=== PATIENT | female | born 1975 | race African-American/Black ===

== ENCOUNTER 2019-02-08 19:39 | Emergency (ER) | payer BC ==
[2019-02-08 19:56] VITALS: BP 137/82
[2019-02-08] MEDS ORDERED: ASPIRIN 81 MG TABLET, CHEWABLE PO ONE (20:14)
--- NOTE | 2019-02-08 20:20 | ER Document Report ---
Addendum entered and electronically signed by JORGE ALBERTO WHITMORE PA 02/08/19 21:51: Course - Re-evaluation Re-evalutation: 02/08/19 21:51 Venous Doppler production control technologist reports to me that her initial report is unofficially negative for DVT. - Vital Signs Vital signs: Temp Pulse Resp BP Pulse Ox 98.4 F 94 18 137/82 H 97 02/08/19 19:53 02/08/19 19:53 02/08/19 19:53 02/08/19 19:53 02/08/19 19:53 - Laboratory Result Diagrams: 02/08/19 20:15 02/08/19 20:15 Laboratory results interpreted by me: 02/08/19 20:15 RDW 15.0 H Original Note: ED Medical Screen (RME) - General Chief Complaint: Chest Pain Stated Complaint: CHEST DISCOMFORT Time Seen by Provider: 02/08/19 20:17 Notes: Patient is a 43 year old female that comes to the emergency department for complaint of left calf pain and also intermittent discomfort in her chest and left arm. She also reports intermittent lightheadedness. She states she just feels "off". Denies difficulty breathing, cough, fever/chills, nausea/vomiting. 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 TRAVEL OUTSIDE OF THE [place] IN LAST 30 DAYS: No - Related Data Allergies/Adverse Reactions: No Known Drug Allergies Allergy (Verified 02/08/19 19:40) Past Medical History - Past Medical History Cardiac Medical History: Reports: Hx Hypertension - TRANSIENT (PRE-ECLAMPSIA), Hx Pulmonary Embolism - mar 2013 on warfarin,INR last level checked Tuesday, was a little high - Immunizations Hx Diphtheria, Pertussis, Tetanus Vaccination: Yes Physical Exam - Vital signs Vitals: Temp Pulse Resp BP Pulse Ox 98.4 F 94 18 137/82 H 97 02/08/19 19:53 02/08/19 19:53 02/08/19 19:53 02/08/19 19:53 02/08/19 19:53 - Respiratory Respiratory status: No respiratory distress Breath sounds: Normal - Cardiovascular Rhythm: Regular. No: Tachycardia Heart sounds: Normal auscultation, S1 appreciated, S2 appreciated - Extremities General lower extremity: No: Edema - Minimal tenderness along the calf with palpation but no swelling or edema noted of the lower extremity Course - Re-evaluation Re-evalutation: Patient with no tachypnea, hypoxia, tachycardia. No swelling of the left lower extremity but she does have some mild calf pain. Work-up pending. I have greeted and performed a rapid initial assessment of this patient. A comprehensive ED assessment and evaluation of the patient, analysis of test results and completion of the medical decision making process will be conducted by additional ED providers. - Vital Signs Vital signs: Temp Pulse Resp BP Pulse Ox 98.4 F 94 18 137/82 H 97 02/08/19 19:53 02/08/19 19:53 02/08/19 19:53 02/08/19 19:53 02/08/19 19:53
[2019-02-08 20:39] LABS: ABSOLUTE EOSINOPHILS # (AUTO) 0.2 10^3/uL (0.0-0.6); ABSOLUTE LYMPHOCYTES (AUTO) 2.3 10^3/uL (0.5-4.7); ABSOLUTE MONOCYTES (AUTO) 0.5 10^3/uL (0.1-1.4); ABSOLUTE NEUT (AUTO) 3.1 10^3/uL (1.7-8.2); BASOPHILS % (AUTO) 0.8 % (0-2); EOSINOPHILS % (AUTO) 3.6 % (0-6); HEMATOCRIT 36.1 % (36.0-47.0); HEMOGLOBIN 12.3 g/dL (12.0-15.5); LYMPHOCYTES % (AUTO) 37.4 % (13-45); MEAN CORPUSCULAR HEMOGLOBIN 28.1 pg (27.0-33.4); MEAN CORPUSCULAR HGB CONC 34.1 g/dL (32.0-36.0); MEAN CORPUSCULAR VOLUME 82 fl (80-97); MONOCYTES % (AUTO) 8.6 % (3-13); PLATELET COUNT 194 10^3/uL (150-450); SEGMENTED NEUTROPHILS % (AUTO) 49.6 % (42-78); TOTAL CELLS COUNTED % (AUTO) 100 %; WHITE BLOOD COUNT 6.2 10^3/uL (4.0-10.5)
[2019-02-08 20:56] LABS: ALANINE AMINOTRANSFERASE 21 U/L (9-52); ALBUMIN 4.2 g/dL (3.5-5.0); ALKALINE PHOSPHATASE 59 U/L (38-126); ANION GAP 11 (5-19); ASPARTATE AMINO TRANSFERASE 17 U/L (14-36); BILIRUBIN,DIRECT 0.2 mg/dL (0.0-0.4); BILIRUBIN,TOTAL 0.4 mg/dL (0.2-1.3); BLOOD UREA NITROGEN 18 mg/dL (7-20); CALCIUM 9.4 mg/dL (8.4-10.2); CARBON DIOXIDE 23 mmol/L (22-30); CHLORIDE 106 mmol/L (98-107); GLUCOSE 108 mg/dL (75-110); POTASSIUM 4.1 mmol/L (3.6-5.0); SODIUM 139.9 mmol/L (137-145); TOTAL PROTEIN 7.4 g/dL (6.3-8.2)
--- NOTE | 2019-02-08 21:18 | RADIOLOGY REPORT (SQ) ---
EXAM DESCRIPTION: XR CHEST 1 VIEW COMPLETED DATE/TME: 02/08/2019 20:14 CLINICAL HISTORY: 43 years Female cp COMPARISON: 05/30/2014. FINDINGS: The cardiomediastinal silhouette appears unremarkable. No consolidating infiltrates or pleural effusions. No pneumothorax. IMPRESSION: No acute abnormality is identified.
--- NOTE | 2019-02-08 23:00 | EKG REPORT ---
SEVERITY:- BORDERLINE ECG - SINUS RHYTHM LVH BY VOLTAGE : Confirmed by: Rojelio Cardenas 08-Feb-2019 22:59:38
--- NOTE | 2019-02-09 00:40 | RADIOLOGY REPORT (SQ) ---
EXAM DESCRIPTION: Left lower extremity venous duplex 02/08/2019 11:39 PM CDT CLINICAL HISTORY: 43 years, 43 years, left calf pain, hx DVT/PE COMPARISON: Nine TECHNIQUE: Utilizing a linear array transducer, real-time ultrasound evaluation of the left lower extremity was performed. Color Doppler imaging was used to assess vascular flow. FINDINGS: The left common femoral and proximal/mid/distal superficial femoral veins are normal in caliber and compressibility. There is normal directional flow. The left popliteal vein is normal in appearance. There is normal directional flow and normal compressibility. IMPRESSION: No evidence of left lower extremity deep venous thrombosis.
--- NOTE | 2019-02-09 01:34 | ER Document Report ---
ED General - General Chief Complaint: Chest Pain Stated Complaint: CHEST DISCOMFORT Time Seen by Provider: 02/08/19 20:17 Primary Care Provider: RADHA MURRAY MD [COMMUNITY BASED STAFF] - Follow up as needed TRAVEL OUTSIDE OF THE [place] IN LAST 30 DAYS: No - HPI Notes: Patient is a 43-year-old female comes to the emergency department for evaluation. She states she is just been feeling "off." She states intermittently through the week she is had pain in her left calf. It was sharp and stabbing, at times was difficult to walk. She denies any injury. She states that this evening she has had some pain in her upper back that occasionally radiates to her chest. She states that about 630 this evening her left arm felt "tingly," particularly in her hand. She denies that sensation now. The pain in her chest is not worsened with deep breaths. She denies any dyspnea. - Related Data Allergies/Adverse Reactions: No Known Drug Allergies Allergy (Verified 02/08/19 19:40) Past Medical History - General Information source: Patient - Social History Smoking Status: Never Smoker Frequency of alcohol use: None Drug Abuse: None Family History: DM, Hypertension - Past Medical History Cardiac Medical History: Reports: Hx Hypertension - TRANSIENT (PRE-ECLAMPSIA), Hx Pulmonary Embolism - mar 2013 on warfarin - Immunizations Hx Diphtheria, Pertussis, Tetanus Vaccination: Yes Review of Systems - Review of Systems Constitutional: See HPI EENT: No symptoms reported Cardiovascular: See HPI Respiratory: See HPI Gastrointestinal: No symptoms reported Genitourinary: No symptoms reported Female Genitourinary: No symptoms reported Musculoskeletal: See HPI Skin: No symptoms reported Neurological/Psychological: No symptoms reported Physical Exam - Vital signs Vitals: Temp Pulse Resp BP Pulse Ox 98.4 F 94 18 137/82 H 97 02/08/19 19:53 02/08/19 19:53 02/08/19 19:53 02/08/19 19:53 02/08/19 19:53 - Notes Notes: Vital signs reviewed, please refer to chart. Head is normocephalic, atraumatic. Pupils equal round, reactive to light. Neck is supple without meningismus. Heart is regular rate and rhythm. Lungs are clear to auscultation bilaterally. Abdomen is soft, nontender, normoactive bowel sounds throughout. Examination of the spine yields no midline tenderness or step-off. She has significant paraspinal musculature tenderness at approximately T4-5 bilaterally, which reproduces her pain in her back and chest. Extremities without cyanosis, clubbing. Posterior calves are nontender. Peripheral pulses are equal. Skin is warm and dry. Patient is awake, alert, neurological exam is nonfocal. Course - Re-evaluation Re-evalutation: 02/09/19 01:41 Patient presents emergency department for evaluation. She was concerned about the possibility of a DVT/PE. Laboratory investigations and imaging is ordered through triage. Patient has no significant calf tenderness. Her back pain is reproducible with palpation, as well as her chest pain. Her likelihood for significant DVT/PE is low based on clinical criteria. Her PERC score is negative. At this point, I do believe this is all musculoskeletal in nature. She admits that she slouches significantly, has been on her computer a great deal. I suspect this is the etiology of the majority of her symptoms in her ba ck and chest. She sent with anti-inflammatories and muscle relaxers. The importance of following up with her primary care provider was stressed to the patient. She voiced understanding to this. She is to return to the ED with worsening or new concerning symptoms of any sort. - Vital Signs Vital signs: Temp Pulse Resp BP Pulse Ox 98.4 F 94 18 137/82 H 97 02/08/19 19:53 02/08/19 19:53 02/08/19 19:53 02/08/19 19:53 02/08/19 19:53 - Laboratory Result Diagrams: 02/08/19 20:15 02/08/19 20:15 Laboratory results interpreted by me: 02/08/19 20:15 RDW 15.0 H - Diagnostic Test Radiology reviewed: Reports reviewed Radiology results interpreted by me: 02/09/19 01:42 Chest X-Ray 02/08/19 20:14 IMPRESSION: No acute abnormality is identified. Venous Doppler Study 02/08/19 20:17 IMPRESSION: No evidence of left lower extremity deep venous thrombosis. - EKG Interpretation by Me Additional EKG results interpreted by me: 02/09/19 01:43 Sinus mechanism in the 90s. Left axis deviation. No acute ST changes concerning for ischemia or infarction. Discharge - Discharge Clinical Impression: Left leg pain Thoracic back pain Qualifiers: Chronicity: acute Back pain laterality: bilateral Qualified Code(s): M54.6 - Pain in thoracic spine Condition: Stable Disposition: HOME, SELF-CARE Additional Instructions: BACK PAIN: Three out of every four people will have an episode of disabling back pain during their lifetime. Most commonly the pain is due to straining of the muscles and ligaments in the low back. Usual treatment includes: (1) Rest on a firm surface. Avoid lying on your stomach. (2) Ice pack the painful area. After a few days, gentle heat may be used intermittently to relax the area, or ice packs can be continued. (3) Medication may be needed -- muscle relaxers and antiinflammatory medicines are commonly used. (4) As the back improves, exercises are prescribed to strengthen the back and abdominal muscles. Your doctor will advise you on the proper care for your back at each stage in your recovery. You may be better in a few days -- or healing may take several weeks. If new symptoms of a "herniated disc" (radiation of pain, numbness, or tingling down the back of the leg or weakness in the leg) occur, you should be re-examined. Further testing may be necessary. PAIN MEDICATION INJECTION: You have received an injection of a pain medication. You should experience significant pain relief within 45 minutes. If this injection was a narcotic -- it will impair your judgement, slow your reaction time and make you sleepy (as well as relieve your pain). Narcotics also can cause nausea. You should not drive, work with machinery, or perform any task requiring mental alertness until all effects of the medication are gone -- six to eight hours. Do not take any alcohol, or sedatives, and do not take any other medication without checking with your physician. ORAL NARCOTIC MEDICATION: You have been given a prescription for pain control. This medication is a narcotic. It's best taken with food, as nausea can result if taken on an empty stomach. Don't operate machinery or drive within six hours of taking this medication. Do not combine this medicine with alcohol, or with any medication which can cause sedation (such as cold tablets or sleeping pills) unless you get permission from the physician. Narcotics tend to cause constipation. If possible, drink plenty of fluids and eat a diet high in fiber and fruits. Please be aware that prescription narcotics also have the potential for abuse. People become addicted to these medications because of the general sense of wellbeing that they induce. This feeling along with a significant reduction in tension, anxiety, and aggression provides a stimulating seductive quality to these drugs. Once your pain is under control, we encourage you to discard your unused narcotics. MUSCLE RELAXERS: Muscle relaxing medications are usually prescribed for acute muscle spasm or injury to the neck and back. They are often combined with antiinflammatory pain medication for increased relief. You may stop the muscle relaxer when the pain and stiffness have improved. Start the medication again if spasms recur. Muscle relaxers may cause drowsiness, especially with the first dose. Do not operate machinery or drive while under the effects of the medication. Most muscle relaxers last up to 24 hours. Do not combine the medication with alcohol. ICE PACKS: Apply ice packs frequently against the painful area. Many different schedules are recommended, such as "20 minutes on, 20 minutes off" or "one hour ice, two hours rest." If you need to work, you may need to go longer between ice treatments. You should plan to have the area ice packed AT LEAST one fourth of the time. The ice should be applied over the wrap, tape, or splint, or over a layer of cloth -- not directly against the skin. Some ice bags have a built-in cloth and can be put directly on the skin. WARM PACKS: After approximately two days, apply gentle heat (such as a heating pad or hot water bottle) for about 20 to 30 minutes about every two hours -- at least four times daily. Warmth and elevation will help you make a more rapid recovery, and will ease the pain considerably. Do not use HOT heat, and never apply heat for longer than 30 minutes. The continuous heat can invisibly damage skin and muscles -- even when no burn is seen on the surface. Damaged muscles can make you MORE sore. FOLLOW-UP CARE: If you have been referred to a physician for follow-up care, call the physicians office for an appointment as you were instructed or within the next two days. If you experience worsening or a significant change in your symptoms, notify the physician immediately or return to the Emergency Department at any time for re-evaluation. Prescriptions: Meloxicam [Mobic] 7.5 mg PO BID #20 tablet Methocarbamol [Robaxin-750] 750 mg PO TID PRN #21 tablet PRN Reason: Referrals: RADHA MURRAY MD [COMMUNITY BASED STAFF] - Follow up as needed
== END 2019-02-09 01:55 | disposition home or self-care (01) ==
LOC: ER 19:39
DX: M54.6 Pain in thoracic spine (principal); R07.9 Chest pain, unspecified; M79.662 Pain in left lower leg; Z86.711 Personal history of pulmonary embolism
CPT/HCPCS: 36415; 71045; 80053; 84484; 84703; 85025; 93005; 93010; 93971; 99284